=== PATIENT | male | born 1990 | race Caucasian/White ===

== ENCOUNTER 2016-12-28 13:13 | Emergency (ER) | payer MEDICAID, OTHER ==
[2016-12-28 13:21] VITALS: RESP 16
--- NOTE | 2016-12-28 13:48 | EDPHY ---
H & P Stated Complaint: rlq abd pain/r testicular tenderness x 3 weeks Time Seen by Provider: 12/28/16 13:34 HPI/ROS: CHIEF COMPLAINT: Right lower quadrant abdominal and right testicle pain x3 weeks HISTORY OF PRESENT ILLNESS: 26-year-old male history of bilateral inguinal herniorrhaphy in February [address] Izabella De Anda, complaining of 3 weeks of atraumatic right lower quadrant and right testicle pain, intermittently reproducible with movement. No nausea or vomiting. Full oral intake. Bowel movements normal. No melena or hematochezia. Passing gas as normal. No urinary abnormality. No dysuria , no hematuria , no urethral discharge. No genital or abdominal trauma. No pain with defecation. No flu-like symptoms. REVIEW OF SYSTEMS: A ten point review of systems was performed and is negative with the exception of the items mentioned in the HPI PAST MEDICAL & SURGICAL HISTORY: Bilateral inguinal herniorrhaphy Dr. Izabella De Anda February 2016 SOCIAL HISTORY: Nonsmoker PHYSICAL EXAM (Prior to examination, patient consented to physical exam, hands were washed and my usual and customary physical exam procedures followed) 1) GENERAL: Well-developed, well-nourished, alert and oriented. Appears to be in no acute distress. 2) HEAD: Normocephalic, atraumatic 3) HEENT: Pupils equal, round, reactive to light bilaterally. Sclera anicteric. 4) NECK: Full range of motion, no meningeal signs. 5) LUNGS: Clear auscultation bilaterally, no wheezes, no rhonchi, no retractions. 6) HEART: Regular rate and rhythm, no murmur, no heave, no gallop. 7) ABDOMEN: No guarding, no rebound, no focal tenderness, negative McBurney's, negative Dobson's, negative Rovsing's, negative peritoneal sign, unable to elicit any abdominal pain 8) MUSCULOSKELETAL: Moving all extremities, no focal areas of tenderness, no obvious trauma. No peripheral edema or discoloration. 9) BACK: No CVA tenderness, no midline vertebral tenderness, no fluctuance, no step-off, no obvious trauma, no visual or palpable abnormality. 10) SKIN: No rash, no petechiae. 11) : Normal male external genitalia bilateral testicles with no swelling, No pain,no asymmetry, no high-riding testicle, cremasteric reflex present. Bilateral inguinal examination is unremarkable, no mass, no swelling, no pain. DIFFERENTIAL DIAGNOSIS: My differential diagnosis includes, but is not limited to, acute appendicitis, acute cholecystitis, bowel obstruction, acute pancreatitis, testicular torsion, gastritis and urinary tract infection. The patient understands that this diagnosis is provisional and can never be 100% accurate. This is a partial list of diagnoses considered. These considerations are based on history, physical exam, past history and reassessment. - Personal History Current Tetanus/Diphtheria Vaccine: Unsure - Medical/Surgical History Hx Asthma: Yes Hx Chronic Respiratory Disease: No Hx Diabetes: No Hx Cardiac Disease: No Hx Renal Disease: No Hx Cirrhosis: No Hx Alcoholism: No Hx HIV/AIDS: No Hx Splenectomy or Spleen Trauma: No Other PMH: ASTHMA, left ankle fx surgical repair/ bilat inguinal hernia repair - Social History Smoking Status: Never smoked Constitutional: Initial Vital Signs Temperature (C) 36.4 C 12/28/16 13:18 Heart Rate 76 12/28/16 13:18 Respiratory Rate 16 12/28/16 13:18 Blood Pressure 129/75 H 12/28/16 13:18 O2 Sat (%) 94 12/28/16 13:18 O2 Delivery Mode Room Air Allergies/Adverse Reactions: No Known Allergies Allergy (Verified 12/28/16 13:18) Home Medications: Medication Instructions Recorded Albuterol [Proventil Inhaler HFA 2 puffs IH Q4 PRN #1 mdi 10/05/15 (*)] Medical Decision Making - Diagnostics Imaging: Testicular Sonography History: Right testicular pain x4 weeks, inguinal hernia repair in 2016. Technique: Real-time imaging with a high frequency transducer and both color and pulsed duplex doppler analysis. Findings: Both testes are well visualized. They are normal in size and homogeneous in echotexture. There is no hydrocele formation. Doppler analysis reveals symmetric normal flow in each testis. The epididymides are symmetric and normal in appearance and both have normal Doppler blood flow. Duplex Doppler resistive index = 0.44 on the right and 0.50 on the left. Impression: Normal scrotal sonography. No source for inferior right scrotal pain identified. Results called to Jose Boyd at 2:39 PM Dictated By: Zeyad Khan MD Limited Abdominal Sonogram History: Right lower quadrant pain x 4 weeks, possible appendicitis Technique: Graded compression with a high frequency linear transducer. Findings: A normal appendix is identified. There is no free fluid or loculated fluid. Normal loops of bowel are identified. Impression: Normal appendix. Results called to Jose Boyd. Dictated By: Zeyad Khan MD Images reviewed by myself ED Course/Re-evaluation: 4 p.m.: Re-evaluation. I discussed his negative testicular and abdominal ultrasound showing a well-visualized, normal appendix and normal testicle. I discussed his laboratory studies . I think that acute surgical abdominal or pathology such as acute appendicitis, testicular torsion, less than likely in this patient at this time. There is no mass or hernia appreciable on exam. We discussed possibility of a small non incarcerated inguinal hernia as the etiology of his pain. We discussed the benefits and risks of CT imaging. I do not think that CT imaging currently indicated at this time given his nonfocal exam and normal ultrasound studies. I did recommend he follow up with Dr. Izabella De Anda his surgeon who performed his herniorrhaphy a few months ago. In the meantime, he has been given my usual and customary strict return precautions instructions regarding acute abdominal and genitalia pain . He feels comfortable being discharged. Discussed case with Dr Marroquin in ER - Data Points Laboratory Results: Laboratory Results 12/28/16 14:45 12/28/16 14:45 12/28/16 12/28/16 12/28/16 15:15 14:45 14:45 WBC 4.15 10^3/uL 10^3/uL (3.80-9.50) RBC 5.94 10^6/uL 10^6/uL (4.40-6.38) Hgb 18.5 g/dL H g/dL (13.7-17.5) Hct 53.7 % H % (40.0-51.0) MCV 90.4 fL fL (81.5-99.8) MCH 31.1 pg pg (27.9-34.1) MCHC 34.5 g/dL g/dL (32.4-36.7) RDW 12.8 % % (11.5-15.2) Plt Count 218 10^3/uL 10^3/uL (150-400) MPV 9.5 fL fL (8.7-11.7) Neut % (Auto) 52.3 % % (39.3-74.2) Lymph % (Auto) 35.4 % % (15.0-45.0) [place] % (Auto) 8.9 % % (4.5-13.0) Eos % (Auto) 2.2 % % (0.6-7.6) Baso % (Auto) 1.0 % % (0.3-1.7) Nucleat RBC Rel Count 0.0 % % (0.0-0.2) Absolute Neuts (auto) 2.17 10^3/uL 10^3/uL (1.70-6.50) Absolute Lymphs (auto) 1.47 10^3/uL 10^3/uL (1.00-3.00) Absolute Monos (auto) 0.37 10^3/uL 10^3/uL (0.30-0.80) Absolute Eos (auto) 0.09 10^3/uL 10^3/uL (0.03-0.40) Absolute Basos (auto) 0.04 10^3/uL 10^3/uL (0.02-0.10) Absolute Nucleated RBC 0.00 10^3/uL 10^3/uL (0-0.01) Immature Gran % 0.2 % % (0.0-1.1) Immature Gran # 0.01 10^3/uL 10^3/uL (0.00-0.10) Sodium 143 mEq/L mEq/L (134-144) Potassium 4.6 mEq/L mEq/L (3.5-5.2) Chloride 107 mEq/L mEq/L (97-110) Carbon Dioxide 25 mEq/l mEq/l (22-31) Anion Gap 11 mEq/L mEq/L (8-16) BUN 15 mg/dL mg/dL (7-23) Creatinine 0.9 mg/dL mg/dL (0.7-1.3) Estimated GFR > 60 Glucose 89 mg/dL mg/dL (70-100) Calcium 9.7 mg/dL mg/dL (8.5-10.4) Total Bilirubin 1.2 mg/dL mg/dL (0.1-1.4) Conjugated Bilirubin 0.5 mg/dL mg/dL (0.0-0.5) Unconjugated Bilirubin 0.7 mg/dL mg/dL (0.0-1.1) AST 40 IU/L IU/L (17-59) ALT 44 IU/L IU/L (21-72) Alkaline Phosphatase 95 IU/L IU/L (38-126) Total Protein 8.0 g/dL g/dL (6.3-8.2) Albumin 4.8 g/dL g/dL (3.5-5.0) Lipase 90.0 IU/L IU/L (23-300) Urine Color YELLOW Urine Appearance CLEAR Urine pH 5.0 (5.0-7.5) Ur Specific [place] 1.018 (1.002-1.030) Urine Protein NEGATIVE (NEGATIVE) Urine Ketones NEGATIVE (NEGATIVE) Urine Blood NEGATIVE (NEGATIVE) Urine Nitrate NEGATIVE (NEGATIVE) Urine Bilirubin NEGATIVE (NEGATIVE) Urine Urobilinogen NEGATIVE EU EU (0.2-1.0) Ur Leukocyte Esterase NEGATIVE (NEGATIVE) Urine RBC 1-3 /hpf /hpf (0-3) Urine WBC 1-3 /hpf /hpf (0-3) Ur Epithelial Cells NONE SEEN /lpf /lpf (NONE-1+) Urine Mucus TRACE /lpf /lpf (NONE-1+) Urine Glucose NEGATIVE (NEGATIVE) Departure - Departure Disposition: Home, Routine, Self-Care Clinical Impression: Abdominal pain Qualifiers: Abdominal location: right lower quadrant Qualified Code(s): R10.31 - Right lower quadrant pain Condition: Good Instructions: Acute Abdominal Pain (ED) Additional Instructions: Return to the ER if you develop new or worsening symptoms, if you develop fevers, chills, inability to tolerate oral intake or any other symptoms that concerns you. Referrals: Izabella De Anda MD [Medical Doctor] - 2-3 days, call for appt.
[2016-12-28 14:56] LABS: % IMMATURE GRANULYOCYTES 0.2 % (0.0-1.1); ABSOLUTE IMMATURE GRANULOCYTES 0.01 10^3/uL (0.00-0.10); ADD DIFF? NO; ADD MORPH? NO; ADD SCAN? NO; ATYPICAL LYMPHOCYTE FLAG 10 (0-99); FRAGMENT RBC FLAG 0 (0-99); HEMATOCRIT 53.7 % (40.0-51.0); HEMOGLOBIN 18.5 g/dL (13.7-17.5); LEFT SHIFT FLG 0 (0-99); LIPEMIA HEMOLYSIS FLAG 90 (0-99); MEAN CELL HEMOGLOBIN 31.1 pg (27.9-34.1); MEAN CELL HEMOGLOBIN CONCENTR. 34.5 g/dL (32.4-36.7); MEAN CELL VOLUME 90.4 fL (81.5-99.8); MEAN PLATELET VOLUME 9.5 fL (8.7-11.7); PLATELET CLUMPS FLAG 0 (0-99); PLATELET COUNT 218 10^3/uL (150-400); RED BLOOD CELL COUNT 5.94 10^6/uL (4.40-6.38); RED CELL DISTRIBUTION WIDTH 12.8 % (11.5-15.2)
[2016-12-28 15:10] LABS: ALANINE AMINOTRANSFERASE 44 IU/L (21-72); ALBUMIN 4.8 g/dL (3.5-5.0); ALKALINE PHOSPHATASE 95 IU/L (38-126); ANION GAP 11 mEq/L (8-16); ASPARTATE AMINOTRANSFERASE 40 IU/L (17-59); BILIRUBIN,TOTAL 1.2 mg/dL (0.1-1.4); BILIRUBIN-CONJUGATED 0.5 mg/dL (0.0-0.5); BILIRUBIN-UNCONJUGATED 0.7 mg/dL (0.0-1.1); CALCIUM 9.7 mg/dL (8.5-10.4); CARBON DIOXIDE 25 mEq/l (22-31); CHLORIDE 107 mEq/L (97-110); CREATININE 0.9 mg/dL (0.7-1.3); GLOMERULAR FILTRATION RATE > 60; GLUCOSE 89 mg/dL (70-100); POTASSIUM 4.6 mEq/L (3.5-5.2); SODIUM 143 mEq/L (134-144)
[2016-12-28 15:26] LABS: LEUKOCYTE ESTERASE,URINE NEGATIVE (NEGATIVE); NITRITE,URINE NEGATIVE (NEGATIVE)
[2016-12-28 15:32] LABS: MUCUS TRACE /lpf (NONE-1+)
[2016-12-28 15:36] LABS: COLOR YELLOW
[2016-12-28 16:39] VITALS: BP 125/65; PULSE 66; TEMP 97.9; O2SAT 95
== END 2016-12-28 16:37 | disposition home or self-care (01) ==
DX: R10.31 Right lower quadrant pain (principal); J45.909 Unspecified asthma, uncomplicated

== ENCOUNTER → 2017-02-02 | Outpatient (CLI) | payer MEDICAID | LOC: BMCIMAGING 08:42 | PROVIDERS: ATTEND Surgery | DX: R10.31 Right lower quadrant pain (principal) ==